=== PATIENT | female | born 1985 | race Caucasian/White ===

== ENCOUNTER 2017-11-30 12:08 | Emergency (ER) | payer SELFPAY ==
[~2017-11-30] VITALS: Ht 154.9 cm; Wt 81.6 kg
[2017-11-30 12:46] LABS: *URINE HCG, QUAL NEGATIVE (NEGATIVE)
--- NOTE | 2017-11-30 13:18 | NUR ---
Patient discharged to home in stable conditon. Written and verbal after care instructions given. Patient verbalizes understanding of instructions.
== END 2017-11-30 13:19 | disposition home or self-care (01) ==
LOC: ER 12:11
DX: S09.90XA Unspecified injury of head, initial encounter (principal); M47.892 Other spondylosis, cervical region; M77.8 Other enthesopathies, not elsewhere classified; M46.02 Spinal enthesopathy, cervical region; Z90.710 Acquired absence of both cervix and uterus; Z88.0 Allergy status to penicillin; W01.0XXA Fall on same level from slipping, tripping and stumbling without subsequent striking against object, initial encounter; Y93.89 Activity, other specified; Y92.89 Other specified places as the place of occurrence of the external cause; Y99.8 Other external cause status
CPT/HCPCS: 70450; 72125; 84703; A4663